=== PATIENT | female | born 1940 | race Caucasian/White ===

== ENCOUNTER 2017-01-19 19:55 | Inpatient (IN) | payer MEDICARE, MEDICAID ==
[2017-01-19 21:42] VITALS: BP 141/86
[2017-01-19] MEDS ORDERED: Magnesium Hydroxide (MOM) 30 mL UDC PO PRN (21:53)
[2017-01-20] MEDS ORDERED: IBANDRONATE SODIUM PO SCH (10:15)
[2017-01-20] MEDS: Aspirin 81mg Chewable Tab PO SCH (11:00)
[2017-01-20] MEDS: Levothyroxine 0.1 Mg Tab PO SCH ×2 (11:01→11:15)
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
[2017-01-21] MEDS: Levothyroxine 0.1 Mg Tab PO SCH (09:18)
[2017-01-21] MEDS: Aspirin 81mg Chewable Tab PO SCH (09:18)
--- NOTE | 2017-01-21 23:25 | Progress Notes ---
DATE: 01/21/2017 SUBJECTIVE: Staff was spoken to. The patient is interviewed. Mood is noted to be irritable. Affect is constricted. The patient is stating that she is not safe and she does not feel comfortable in here, she has all the help at home. The patient's is also stating that they are going to be having ____, they want to take her home. The patient is a 72-hour hold, is going to be up at 3:00 today. Plan to change this status to voluntary and if the supportive staff are available, the patient is going to be discharged. I have tried to reach the patient's niece and left a message and a message was also left for her . ASSESSMENT: The patient is stabilizing, possibly disease, may be delirium or possibly secondary to the infection and this seems to be stabilizing and is not presenting with any threats to harm self or anyone else. The patient's is comfortable with the patient coming home and hence it is informed to the supervisor case loading possibly patient is going to be discharging possibly after the hold is up. JOB# [id number]
== END 2017-01-21 17:00 | disposition home or self-care (01) | DRG 885 ==
LOC: GERO 19:55
PROVIDERS: ADMIT Psychiatry & Neurology Psychiatry; ATTEND Psychiatry & Neurology Psychiatry
DX: F29 Unspecified psychosis not due to a substance or known physiological condition (principal); F03.91 Unspecified dementia, unspecified severity, with behavioral disturbance; G62.9 Polyneuropathy, unspecified; M19.90 Unspecified osteoarthritis, unspecified site; E03.9 Hypothyroidism, unspecified; M81.0 Age-related osteoporosis without current pathological fracture; I10 Essential (primary) hypertension; Z90.710 Acquired absence of both cervix and uterus; Z90.49 Acquired absence of other specified parts of digestive tract; Z88.0 Allergy status to penicillin
CPT/HCPCS: Z7610